=== PATIENT | male | born 1950 | race Caucasian/White ===

== ENCOUNTER 2019-08-25 09:36 | Outpatient (CLI) | payer MEDICARE, SELFPAY ==
--- NOTE | 2019-08-25 09:47 | US_ITS ---
WS: [id number] RIGHT UPPER QUADRANT ULTRASOUND HISTORY: hepatomegaly COMPARISON: None available. Liver: 19.3 cm in length. Liver is moderately enlarged. Marked attenuation from hepatic steatosis. Gallbladder: Well distended gallbladder with numerous stones with shadowing. No pericholecystic fluid or gallbladder wall thickening. CBD: 0.4 cm Pancreas: Not well visualized. Right kidney: 9.8 cm in length. Normal echogenicity with no mass or hydronephrosis. Aorta and IVC: Unremarkable. No ascites. US/US liver [id number] IMPRESSION: 1. Moderate hepatomegaly with hepatic steatosis. 2. Cholelithiasis without acute cholecystitis.
== END 2019-08-25 09:37 | disposition home or self-care (01) ==
LOC: RAD 09:42
PROVIDERS: Family Provider Electrodiagnostic Medicine; Visit Provider Family Medicine
DX: R16.0 Hepatomegaly, not elsewhere classified (principal); K76.0 Fatty (change of) liver, not elsewhere classified; K80.20 Calculus of gallbladder without cholecystitis without obstruction
CPT/HCPCS: 76705

== ENCOUNTER 2019-11-05 12:52 | Outpatient (CLI) | payer MEDICARE, SELFPAY ==
--- NOTE | 2019-11-05 13:02 | CT_ITS ---
WS: [id number] EXAM: CT OF THE ABDOMEN AND PELVIS WITH CONTRAST DATE OF EXAMINATION: 11/05/2019, 1431 hours COMPARISON: None. HISTORY: 69 years old with history of alcoholic liver cirrhosis with hepatomegaly. Liver mass. TECHNIQUE: Transaxial computed tomography images obtained through the abdomen and pelvis utilizing oral contrast as well as 95 mL of Omnipaque 300 IV contrast with images acquired in the portal and delayed phase. Images viewed in multiple windows with reconstructions. DLP: 1193.[address] scans at [facility] use at least one of these dose optimization techniques: automat ed exposure control; mA and/or kV adjustment per patient size (includes targeted exams where dose is matched to clinical indication); or iterative reconstruction. FINDINGS: Lung bases are clear other than minimal atelectasis in the anterior lingula abutting the left pericar dial fat pad. Heart size is considered upper limits of normal to minimally enlarged The aorta is norm al in caliber and opacifies normally. The liver is grossly abnormal. There is diffuse involvement with small nodular densities. This does n ot have the classic appearance for uncomplicated cirrhosis. Differential includes both benign and mal ignant entities. A diffuse metastatic process not excluded and is suspicious for being present. Could represent peliosis. A large solid mass lesion is otherwise not seen. There is slight irregularity to the serosal surface suggesting some degree of cirrhosis. Gallbladder is normally distended. Multiple stones are seen. No pericholecystic inflammatory change. No biliary dilatation is seen. The portal vein is patent. Spleen is slightly enlarged with calcified granulomas changes. Pancreas is normal in appearance. Adrenal glands are normal in appearance. Both kidneys enhance only. Low-density lesions in both kidneys most likely cysts. Too small to charac terize. Nonobstructing calyceal calcifications right kidney. No obstructive uropathy. Slightly low-de nsity mass lesion inferior lateral left kidney about 13 mm in size Hounsfield units around 40. Consid ered a complicated cyst versus a low-density mass lesion. Renal sonogram recommended to confirm prima ry suspicion of a hemorrhagic cyst. Stomach is most part decompressed otherwise normal in appearance. Small bowel is normal in caliber. T he colon is normal in caliber. There are scattered diverticulosis changes demonstrated. No bowel obst ruction is seen. Normal appendix in the right paracolic gutter. There are findings of a small amount of ascites. There is a small amount of stranding in the mesenter y and nodularity within the peritoneal lining which may be related to venous congestion. However with the findings in the liver I am suspicious for possible peritoneal implants of metastatic disease. Fu rther evaluation is recommended. A small amount of ascites is also seen interposed between the liver and the diaphragm and the spleen and the diaphragm. No pathologically enlarged adenopathy is seen. No umbilical hernia is seen. Small right inguinal hernia containing fat. Prostate is minimally enlarged. Bladder is normally distended. Otherwise unremarkable Scattered degenerative changes are seen in the spine. No acute bony abnormality is seen. Findings of arthritis within both hips as well. CT/CT abdomen pelvis w con* [id number] IMPRESSION: Imaging findings of a grossly abnormal liver with too numerous to count microno dular densities. Suspicious for possible diffuse metastatic disease. Findings suggesting some degree of slight cirrhosis. Small amount of ascites. Suspicion for peritoneal studding of metastatic disease. Lesions within the kidneys most likely cysts. One lesion off the inferior left kidney possibly a complication of hemorrhagic cyst. Renal sonogram follow-up re commended. Other nonemergent findings as described in the body of the report.
[2019-11-05] MEDS: iohexol 300 mg/mL 50 mL Btl PO (13:59)
[2019-11-05] MEDS: iohexol 300 mg/mL 100 mL Btl IV (14:32)
== END 2019-11-05 12:53 | disposition home or self-care (01) ==
LOC: RADWPI 12:52
PROVIDERS: PCP Electrodiagnostic Medicine; Visit Provider Electrodiagnostic Medicine
DX: K76.89 Other specified diseases of liver (principal); K70.30 Alcoholic cirrhosis of liver without ascites; R16.0 Hepatomegaly, not elsewhere classified; R18.8 Other ascites
CPT/HCPCS: 74177; Q9967

== ENCOUNTER 2019-11-22 18:28 | Emergency (ER) | payer MEDICARE, SELFPAY ==
[2019-11-22 18:43] VITALS: BP 111/68; PULSE 68; RESP 16; TEMP 36.4; O2SAT 96; BMI 28.1
--- NOTE | 2019-11-22 18:57 | XRR_ITS ---
PROCEDURE INFORMATION: Exam: XR Chest, 1 View Exam date and time: 11/22/2019 6:58 PM Age: 69 years old Clinical indication: Other: Weakness; Additional info: Generalized weakness TECHNIQUE: Imaging protocol: XR of the chest Views: 1 view. COMPARISON: No relevant prior studies available. FINDINGS: Lungs: Calcified granuloma in the the the right upper lobe. No focal consolidation. No pulmonary edema. Pleural space: No pleural effusion. No pneumothorax. Heart/Mediastinum: The cardiac silhouette and mediastinal contours are unremarkable. Bones/joints: Well-defined sclerotic focus in the proximal right humeral metadiaphysis, suggesting a bone infarct or possibly an enchondroma. Degenerative changes in the spine and shoulders. XR/XR chest 1V portable [id number] IMPRESSION: 1. No acute cardiopulmonary process. 2. Incidental/nonacute findings are listed in the report.
[2019-11-22 19:10] VITALS: BP 107/69; PULSE 70; RESP 16; O2SAT 96
[2019-11-22 19:24] LABS: Basophils # 0.1 10^3/uL (0.0-0.1); Basophils % 0.7 %; Eosinophils # 0.1 10^3/uL (0.0-0.8); Eosinophils % 0.8 %; Hemoglobin 14.7 g/dL (11.7-16.6); Lymphocytes # 1.9 10^3/uL (0.8-4.8); Lymphocytes % 17.6 %; Mean Corpuscular HGB Conc 34.2 g/dL (30.0-36.0); Mean Corpuscular Hemoglobin 37.7 pg (28.0-34.0); Mean Corpuscular Volume 110.3 fL (80-94); Mean Platelet Volume 12.7 fL (7.4-10.4); Monocytes # 1.2 10^3/uL (0.2-0.9); Monocytes % 11.1 %; Neutrophils # 7.48 10^3/uL (1.8-7.7); Neutrophils % 69.5 %; Nucleated Red Blood Cells % 0 %; Platelet Count 174 10^3/cmm (130-400); Red Cell Distribution Width 13.9 % (12.1-15.1); White Blood Count 10.8 10^3/uL (4.0-10.0)
[2019-11-22 19:45] LABS: Ammonia 53 umol/L (16-60)
[2019-11-22 19:57] LABS: Alanine Aminotransferase 50 U/L (0-41); Alkaline Phosphatase 93 IU/L (40-130); Anion Gap 12.8 (5-19); Aspartate Amino Transferase 88 U/L (0-40); Blood Urea Nitrogen 11 mg/dL (8-23); Calcium 8.8 mg/dL (8.5-10.5); Carbon Dioxide 27 mmol/L (22-29); Chloride 95 mmol/L (98-107); Creatinine Clr Calc Pharmacy 70.3099; Glomerular Filtration Rate 73.9 mL/min (90-130); Glucose 113 mg/dL (65-115); Lipase 128 U/L (13-60); NT Pro B Type Natriuretic Pept 44 pg/mL (0-125); Osmolality Calculated 269 mOsm/kg (285-295); Potassium 3.8 mmol/L (3.5-5.1); Sodium 131 mmol/L (136-145); Total Bilirubin 3.4 mg/dL (0.15-1.2)
[2019-11-22 20:00] VITALS: PULSE 67; RESP 16; O2SAT 95
--- NOTE | 2019-11-22 20:24 | CTR_ITS ---
PROCEDURE INFORMATION: Exam: CT Abdomen And Pelvis With Contrast Exam date and time: 11/22/2019 8:40 PM Age: 69 years old Clinical indication: Abnormal findings; Abnormal lab test; Elevated liver enzymes; Patient HX: Weakness x 2 days S/P fall elev lfts and cirrhosis; Additional info: Elevated liver enzymes, history of cirrhosis TECHNIQUE: Imaging protocol: Computed tomography of the abdomen and pelvis with intravenous contrast. Radiation optimization: All CT scans at this facility use at least one of these dose optimization techniques: automated exposure control; mA and/or kV adjustment per patient size (includes targeted exams where dose is matched to clinical indication); or iterative reconstruction. Contrast material: OMNI 300; Contrast volume: 95 ml; Contrast route: INTRAVENOUS (IV); COMPARISON: CT abdomen pelvis w con* [id number] 11/05/2019 2:28 PM RADIATION DOSE METRICS: Total DLP (mGy-cm): 883.37 FINDINGS: Lungs: Visualized lungs are clear. Pleural space: No pleural effusion. Heart: Stable mild enlargement of the visualized portions of the heart. Liver: Multiple calcified granulomas in the liver. Stable nodular contour of the liver. Multiple areas of mild fatty infiltration in the liver with areas of fatty sparing, findings are stable. Gallbladder and bile ducts: Multiple stones in the gallbladder. Findings are stable. No biliary ductal dilatation. The gallbladder is contracted. This may be due to a postprandial state. No pericholecystic fluid. Pancreas: The pancreas is unremarkable. No pancreatic ductal dilatation. Spleen: Stable mild enlargement of the spleen measuring 13.8 cm in length. Multiple calcified granulomas in the spleen. Adrenals: The right and left adrenal glands are unremarkable. Kidneys and ureters: Subcentimeter hypodense foci in both right and left kidneys that are too small to characterize, however likely represent small cysts. The right and left ureters are unremarkable. Stomach and bowel: Ingested contents in the stomach. Numerous diverticula in the sigmoid colon. No evidence for diverticulitis. Fluid within the small bowel and colon without evidence of bowel wall thickening. Appendix: The appendix is visualized and is unremarkable. No findings to suggest acute appendicitis. Intraperitoneal space: Stable moderate volume ascites. No free intraperitoneal air. No loculated fluid collections to suggest an abscess. Vasculature: Mild atherosclerotic calcification in the visualized coronary arteries. Moderate atherosclerotic changes in the visualized arteries. No evidence for aortic aneurysm or aortic dissection. Hepatic veins are poorly opacified and not well-visualized. Portal veins, splenic vein, and SMV are patent. Small/moderate caliber varices in the abdomen and pelvis are stable Lymph nodes: No lymphadenopathy. Bladder: Diffuse, mild wall thickening of the bladder. Reproductive: Nonspecific parenchymal calcifications in the prostate gland. Bones/joints: Moderate degenerative changes at both the right and left hips. Multilevel degenerative changes of varying severity in the visualized spine. Mild spinal canal stenosis at L1-L2 through L5-S1. Multilevel foraminal stenosis of varying severity in the visualized spine. Soft tissues: Dependent edema in the posterior subcutaneous tissues. CT/CT abdomen pelvis w con* [id number] IMPRESSION: 1. Fluid within the small bowel and colon without evidence of bowel wall thickening. This may reflect viral gastroenteritis in the appropriate clinical situation. 2. Stable changes consistent with cirrhosis and portal hypertension with mild splenomegaly, moderate volume ascites, and variceal formation. 3. Multiple areas of mild fatty infiltration in the liver with areas of fatty sparing, findings are stable. 4. Cholelithiasis, unchanged. 5. Diffuse, mild wall thickening of the bladder. In the correct clinical setting, this may suggest cystitis. Recommend correlation with laboratory findings. Alternatively, this may be secondary to chronic outlet obstruction. 6. Sigmoid diverticulosis. No evidence for diverticulitis. 7. Incidental/nonacute findings are listed in the report. COMMENTS: Consistent with the [employer]'s Incidental Findings Committee white paper (J Am Mushtaq Radiol 2018): Any incidental renal lesion less than 1.0 cm or classified as too small to characterize, or any incidental cystic renal lesion characterized as simple-appearing, is likely benign. No follow-up imaging is recommended for these lesions per consensus recommendations based on imaging criteria. Radiation Dose CTDIVOL = (mGy): DLP = 883.37 (mGy-cm)
[2019-11-22 20:29] LABS: C Reactive Protein 20.5 mg/L (0.0-4.9)
--- NOTE | 2019-11-22 20:38 | W.ED.WEAKNES ---
HPI - Weakness General: Chief complaint: Weakness Stated complaint: weakness Time Seen by Provider: 11/22/19 18:35 Source: patient and family Mode of arrival: ambulatory Limitations: no limitations History of Present Illness: HPI Narrative: Patient is a 69-year-old male who presents to the emergency department with complaints of generalized weakness of 2-week duration. He denies any fever, nausea vomiting, however he had one episode of loose stools. Denies any cough or shortness of breath. Denies any sick contacts. Patient and his caregiver informed that he was recently diagnosed with what seems to be liver cirrhosis with elevated ammonia levels also. He has been scheduled for a liver biopsy. Patient has been given lactulose and he has been taking it every day but says he is yet to have loose stools except the one from today. Associated symptoms: Denies chills, dysuria, fever(s), headache(s), nausea or vomiting Review of Systems General: Reports: 10 or more systems reviewed and unremarkable except in HPI and below Const: Reports: fatigue; Denies: fever(s), chills or body aches Eyes: Denies: change in vision or blurry vision ENMT: Denies: throat pain, enlarged tonsils, odynophagia, hoarseness, mouth pain or swelling of lips/tongue Card: Denies: palpitations, irregular heart rhythm, edema or swelling of feet/ankles Resp: Denies: dyspnea, productive cough or non-productive cough GI: Denies: abdominal pain, nausea or vomiting : Denies: flank pain, dysuria, urinary frequency, urinary urgency or urinary hesitancy Musc: Denies: neck pain, back pain or extremity swelling Skin/Breast: Denies: rash, pruritus or erythema Neuro: Denies: headache(s), numbness in extremities or weakness in extremities Endo: Denies: polyuria, polydipsia or tired all the time [facility] ED PFSH: Medical History (Reviewed 11/22/19 @ 20:47 by Lizzette Abraham MD, [facility] [place], [place]) Alcoholic liver disease Hypertension Surgical History (Reviewed 11/22/19 @ 20:47 by Lizzette Abraham MD, [facility] [place] [place]) H/O circumcision H/O colonoscopy 5 yrs ago H/O esophagogastroduodenoscopy History of back surgery History of surgical removal of ganglion cyst Family History (Reviewed 11/22/19 @ 20:47 by Lizzette Abraham MD, [facility] [place] [place]) Other CAD (coronary artery disease) Cancer Denies family history of Diabetes Anesthesia complication Bleeding disorder Hypertension Social History (Reviewed 11/22/19 @ 20:47 by Lizzette Abraham MD, [facility] [place] [place]) Smoking and tobacco status: never smoked Alcohol intake: current Alcohol intake frequency: 0-2 Drinks per Day Household members: spouse Marital status: Current occupational status: retired History of recent travel: No Physical Exam Const: COMMON NORMALS: no acute distress, average body habitus, patient oriented x3, no limitations, healthy appearing, alert and well nourished HENMT: COMMON NORMALS: normocephalic, atraumatic and moist oral mucous membranes HEAD & SCALP: normocephalic and atraumatic Neck/C-Spine: COMMON NORMALS: no meningeal signs and no JVD Resp: COMMON NORMALS: normal respiratory effort, No retractions, No use of accessory muscles, clear to auscultation bilaterally and percussion normal AUSCULTATION: clear to auscultation bilaterally PERCUSSION: percussion normal Cardio: COMMON NORMALS: no JVD, regular rate, regular rhythm, S1 normal heart sound present, S2 normal heart sound present, No gallops present (Cardio), No clicks present (Cardio), No murmurs present (Cardio), No rub (Cardio) and Peripheral pulses 2+ throughout RATE: regular rate RHYTHM: regular rhythm HEART SOUNDS: S1 normal heart sound present and S2 normal heart sound present PERIPHERAL PULSES: Peripheral pulses 2+ throughout GI: COMMON NORMALS: Normal to inspection, nondistended, normoactive bowel sounds present, Soft to palpation, non-tender, No hepatosplenomegaly present, no masses and no bruits PALPATION: Yes Soft to palpation and Yes No hepatosplenomegaly present Extremity: COMMON NORMALS: normal to inspection, full ROM, capillary refill normal, no calf tenderness and no pedal edema Neuro: COMMON NORMALS: patient oriented x3 SENSORIUM/ORIENTATION: Yes alert MENINGEAL SIGNS: Yes no meningeal signs Skin: COMMON NORMALS: no rashes or lesions noted, no wounds, turgor normal, no jaundice, no petechiae and no mottling GENERAL SKIN EXAM: no rashes or lesions noted and turgor normal Course Reevaluation(s): Reevaluation #1: Discussed his lab and imaging findings with him. Nothing acute is showing up. CT scan appears unchanged from his last CT. He has alcoholic liver disease and liver function tests abnormal consistent with his disease. Ammonia is back to normal. I think his symptoms are just due to the alcoholic liver disease and his probably on his way to being terminal. Explained that he needs to follow-up with his primary care and with his liver biopsy date scheduled. Based on results of his biopsy they can decide on further treatment vis-?-vis his hospice versus aggressive care. Patient and voiced understanding and they are in agreement with the plan. Time: 21:46 Vital Signs: Vital signs: Vital Signs Temperature 97.5 F L 11/22/19 18:43 Pulse Rate 68 11/22/19 21:24 Respiratory Rate 20 H 11/22/19 21:24 Blood Pressure 113/63 11/22/19 21:24 Pulse Oximetry 95 11/22/19 21:24 MDM - Weakness MDM Narrative: Medical decision making narrative: Unfortunate gentleman with alcoholic cirrhosis who has been feeling weak for about 2 weeks. He apparently had elevated ammonia levels when his primary care provider checked his levels. He is on lactulose and his ammonia levels today are normal. I think this is probably a progression of the cirrhosis as evaluation here did not reveal any acute findings. He is discharged home with no new orders. He already has an appointment for a liver biopsy. He is to follow-up with his primary care provider. Medical Records: Attestation: I reviewed the patient's medical records. Lab Data: Attestation: I reviewed the patient's lab results. Labs: Lab Results 11/22/19 11/22/19 11/22/19 Range/Units 19:10 19:10 19:10 WBC 10.8 H (4.0-10.0) 10^3/ uL RBC 3.90 L (4.1-5.3) 10^6/u L Hgb 14.7 (11.7-16.6) g/dL Hct 43.0 (42.0-52.0) % MCV 110.3 H (80-94) fL MCH 37.7 H (28.0-34.0) pg MCHC 34.2 (30.0-36.0) g/dL RDW 13.9 (12.1-15.1) % Plt Count 174 (130-400) 10^3/c mm MPV 12.7 H (7.4-10.4) fL Neut % (Auto) 69.5 % Lymph % (Auto) 17.6 % [place] % (Auto) 11.1 % Eos % (Auto) 0.8 % Baso % (Auto) 0.7 % Neut # (Auto) 7.48 (1.8-7.7) 10^3/u L Lymph # (Auto) 1.9 (0.8-4.8) 10^3/u L [place] # (Auto) 1.2 H (0.2-0.9) 10^3/u L Eos # (Auto) 0.1 (0.0-0.8) 10^3/u L Baso # (Auto) 0.1 (0.0-0.1) 10^3/u L Nucleated RBC % (a uto) 0 % Nucleated RBCs # 0.0 /100WBC Sodium 131 L (136-145) mmol/L Potassium 3.8 (3.5-5.1) mmol/L Chloride 95 L (98-107) mmol/L Carbon Dioxide 27 (22-29) mmol/L Anion Gap 12.8 (5-19) BUN 11 (8-23) mg/dL Creatinine 1.0 (0.7-1.2) mg/dL GFR Calculation 73.9 L (90-130) mL/min Glucose 113 (65-115) mg/dL Calculated Osmolal ity 269 L (285-295) mOsm/k g Lactate 2.0 (0.5-2.2) mmol/L Calcium 8.8 (8.5-10.5) mg/dL Total Bilirubin 3.4 H (0.15-1.2) mg/dL AST 88 H (0-40) U/L ALT 50 H (0-41) U/L Alkaline Phosphata se 93 (40-130) IU/L Ammonia (16-60) umol/L C-Reactive Protein 20.5 H (0.0-4.9) mg/L NT-Pro-B Natriuret Pep 44 (0-125) pg/mL Total Protein 7.0 (6.6-8.7) g/dL Albumin 3.0 L (3.5-5.2) g/dL Globulin 4.0 (1.3-4.6) g/dL Lipase 128 H (13-60) U/L Procalcitonin 0.20 (0-0.5) ng/mL Urine Color (Yellow) Urine Appearance (CLEAR) Urine pH (5-7) Ur Specific Gravit y (1.005-1.030) Urine Protein (Negative) Urine Glucose (UA) (Normal) Urine Ketones (Negative) Urine Blood (Negative) Urine Nitrate (Negative) Urine Bilirubin (NEGATIVE) Urine Urobilinogen (Negative) mg/dL Ur Leukocyte Tonya ase (Negative) 11/22/19 11/22/19 Range/Units 19:10 20:33 WBC (4.0-10.0) 10^3/ uL RBC (4.1-5.3) 10^6/u L Hgb (11.7-16.6) g/dL Hct (42.0-52.0) % MCV (80-94) fL MCH (28.0-34.0) pg MCHC (30.0-36.0) g/dL RDW (12.1-15.1) % Plt Count (130-400) 10^3/c mm MPV (7.4-10.4) fL Neut % (Auto) % Lymph % (Auto) % [place] % (Auto) % Eos % (Auto) % Baso % (Auto) % Neut # (Auto) (1.8-7.7) 10^3/u L Lymph # (Auto) (0.8-4.8) 10^3/u L [place] # (Auto) (0.2-0.9) 10^3/u L Eos # (Auto) (0.0-0.8) 10^3/u L Baso # (Auto) (0.0-0.1) 10^3/u L Nucleated RBC % (a uto) % Nucleated RBCs # /100WBC Sodium (136-145) mmol/L Potassium (3.5-5.1) mmol/L Chloride (98-107) mmol/L Carbon Dioxide (22-29) mmol/L Anion Gap (5-19) BUN (8-23) mg/dL Creatinine (0.7-1.2) mg/dL GFR Calculation (90-130) mL/min Glucose (65-115) mg/dL Calculated Osmolal ity (285-295) mOsm/k g Lactate (0.5-2.2) mmol/L Calcium (8.5-10.5) mg/dL Total Bilirubin (0.15-1.2) mg/dL AST (0-40) U/L ALT (0-41) U/L Alkaline Phosphata se (40-130) IU/L Ammonia 53 (16-60) umol/L C-Reactive Protein (0.0-4.9) mg/L NT-Pro-B Natriuret Pep (0-125) pg/mL Total Protein (6.6-8.7) g/dL Albumin (3.5-5.2) g/dL Globulin (1.3-4.6) g/dL Lipase (13-60) U/L Procalcitonin (0-0.5) ng/mL Urine Color Yellow (Yellow) Urine Appearance Clear (CLEAR) Urine pH 7 (5-7) Ur Specific Gravit y 1.010 (1.005-1.030) Urine Protein Neg (Negative) Urine Glucose (UA) Norm (Normal) Urine Ketones Negative (Negative) Urine Blood Neg (Negative) Urine Nitrate Negative (Negative) Urine Bilirubin Neg (NEGATIVE) Urine Urobilinogen 4 H (Negative) mg/dL Ur Leukocyte Tonya ase Negative (Negative) Imaging Data^: CT Abd/Pel: Radiologist's impression: [place] [address] CT Scan Report Signed Patient: Ej Dang #: [id number] : 1950Acct#:[id number] Age/Sex: 69 / MADM Date: 11/22/19 Loc: ERRoom/Bed: Attending Dr: Ordering Provider/Ordering MD: Lizzette Abraham MD, [facility] [place], [place] Date of Service: 11/22/19 Procedure(s): CT abdomen pelvis w con* [id number] Accession Number(s): [id number] Report Number: [id number] PROCEDURE INFORMATION: Exam: CT Abdomen And Pelvis With Contrast Exam date and time: 11/22/2019 8:40 PM Age: 69 years old Clinical indication: Abnormal findings; Abnormal lab test; Elevated liver enzymes; Patient HX: Weakness x 2 days S/P fall elev lfts and cirrhosis; Additional info: Elevated liver enzymes, history of cirrhosis TECHNIQUE: Imaging protocol: Computed tomography of the abdomen and pelvis with intravenous contrast. Radiation optimization: All CT scans at this facility use at least one of these dose optimization techniques: automated exposure control; mA and/or kV adjustment per patient size (includes targeted exams where dose is matched to clinical indication); or iterative reconstruction. Contrast material: OMNI 300; Contrast volume: 95 ml; Contrast route: INTRAVENOUS (IV); COMPARISON: CT abdomen pelvis w con* [id number] 11/05/2019 2:28 PM RADIATION DOSE METRICS: Total DLP (mGy-cm): 883.37 FINDINGS: Lungs: Visualized lungs are clear. Pleural space: No pleural effusion. Heart: Stable mild enlargement of the visualized portions of the heart. Liver: Multiple calcified granulomas in the liver. Stable nodular contour of the liver. Multiple areas of mild fatty infiltration in the liver with areas of fatty sparing, findings are stable. Gallbladder and bile ducts: Multiple stones in the gallbladder. Findings are stable. No biliary ductal dilatation. The gallbladder is contracted. This may be due to a postprandial state. No pericholecystic fluid. Pancreas: The pancreas is unremarkable. No pancreatic ductal dilatation. Spleen: Stable mild enlargement of the spleen measuring 13.8 cm in length. Multiple calcified granulomas in the spleen. Adrenals: The right and left adrenal glands are unremarkable. Kidneys and ureters: Subcentimeter hypodense foci in both right and left kidneys that are too small to characterize, however likely represent small cysts. The right and left ureters are unremarkable. Stomach and bowel: Ingested contents in the stomach. Numerous diverticula in the sigmoid colon. No evidence for diverticulitis. Fluid within the small bowel and colon without evidence of bowel wall thickening. Appendix: The appendix is visualized and is unremarkable. No findings to suggest acute appendicitis. Intraperitoneal space: Stable moderate volume ascites. No free intraperitoneal air. No loculated fluid collections to suggest an abscess. Vasculature: Mild atherosclerotic calcification in the visualized coronary arteries. Moderate atherosclerotic changes in the visualized arteries. No evidence for aortic aneurysm or aortic dissection. Hepatic veins are poorly opacified and not well-visualized. Portal veins, splenic vein, and SMV are patent. Small/moderate caliber varices in the abdomen and pelvis are stable Lymph nodes: No lymphadenopathy. Bladder: Diffuse, mild wall thickening of the bladder. Reproductive: Nonspecific parenchymal calcifications in the prostate gland. Bones/joints: Moderate degenerative changes at both the right and left hips. Multilevel degenerative changes of varying severity in the visualized spine. Mild spinal canal stenosis at L1-L2 through L5-S1. Multilevel foraminal stenosis of varying severity in the visualized spine. Soft tissues: Dependent edema in the posterior subcutaneous tissues. CT/CT abdomen pelvis w con* [id number] IMPRESSION: 1. Fluid within the small bowel and colon without evidence of bowel wall thickening. This may reflect viral gastroenteritis in the appropriate clinical situation. 2. Stable changes consistent with cirrhosis and portal hypertension with mild splenomegaly, moderate volume ascites, and variceal formation. 3. Multiple areas of mild fatty infiltration in the liver with areas of fatty sparing, findings are stable. 4. Cholelithiasis, unchanged. 5. Diffuse, mild wall thickening of the bladder. In the correct clinical setting, this may suggest cystitis. Recommend correlation with laboratory findings. Alternatively, this may be secondary to chronic outlet obstruction. 6. Sigmoid diverticulosis. No evidence for diverticulitis. 7. Incidental/nonacute findings are listed in the report. COMMENTS: Consistent with the [employer]'s Incidental Findings Committee white paper (J Am Mushtaq Radiol 2018): Any incidental renal lesion less than 1.0 cm or classified as too small to characterize, or any incidental cystic renal lesion characterized as simple-appearing, is likely benign. No follow-up imaging is recommended for these lesions per consensus recommendations based on imaging criteria. Radiation Dose CTDIVOL = (mGy): DLP = 883.37 (mGy-cm) Dictated By:Marry Ahumada MD Signed By:Marry Ahumada MDSigned Date/Time:11/22/192122 DD/ 21 CXR: Radiologist's impression: [address] [address] XRay Report Signed Patient: jE Dang #: [id number] : 1950Acct#:[id number] Age/Sex: 69 / MADM Date: 11/22/19 Loc: ERRoom/Bed: Attending Dr: Ordering Provider/Ordering MD: Lizzette Abraham MD, [facility] [place], [place] Date of Service: 11/22/19 Procedure(s): XR chest 1V portable [id number] Accession Number(s): [id number] Report Number: [id number] PROCEDURE INFORMATION: Exam: XR Chest, 1 View Exam date and time: 11/22/2019 6:58 PM Age: 69 years old Clinical indication: Other: Weakness; Additional info: Generalized weakness TECHNIQUE: Imaging protocol: XR of the chest Views: 1 view. COMPARISON: No relevant prior studies available. FINDINGS: Lungs: Calcified granuloma in the the the right upper lobe. No focal consolidation. No pulmonary edema. Pleural space: No pleural effusion. No pneumothorax. Heart/Mediastinum: The cardiac silhouette and mediastinal contours are unremarkable. Bones/joints: Well-defined sclerotic focus in the proximal right humeral metadiaphysis, suggesting a bone infarct or possibly an enchondroma. Degenerative changes in the spine and shoulders. XR/XR chest 1V portable [id number] IMPRESSION: 1. No acute cardiopulmonary process. 2. Incidental/nonacute findings are listed in the report. Dictated By:Marry Ahumada MD Signed By:Marry Ahumada MDSigned Date/Time:11/22/191954 DD/ 53 Discharge Plan Discharge Patient Disposition: Home Clinical Impression: Alcoholic liver disease Cirrhosis of liver Qualifiers: Hepatic cirrhosis type: alcoholic cirrhosis Ascites presence: with ascites Qualified Code(s): K70.31 - Alcoholic cirrhosis of liver with ascites Condition: Stable Prescriptions: New (DME) wheel chair See Rx Instructions .ROUTE .MEDSUPPLY Qty: 1 RF: 0 Continued metoprolol tartrate 50 mg tablet 50 mg PO BID RF: 0 omega-3 fatty acids 1,000 mg capsule 1,000 mg PO DAILY RF: 0 milk thistle 150 mg capsule 150 mg PO DAILY RF: 0 magnesium 250 mg tablet 250 mg PO DAILY RF: 0 vitamin B complex [B Complex-Vitamin B12] Tablet 1 tab PO DAILY RF: 0 diazepam [Valium] 10 mg tablet 10 mg PO TID PRNRF: 0 Discharge Orders: Discharge Order (Routine); Ordered 11/22/19 Ordered By: Lizzette Abraham Referrals: Luan Cruz DO [Primary Care Provider] - 1-3 days Patient Instructions: Cirrhosis (ED) Activity Restrictions/Additional Instructions: Return for any new or worsening symptoms. Follow-up with your primary care provider within 3 days. Follow-up for your liver biopsy as scheduled. Discharge Date/Time: 11/22/19 22:06 Coding Level of Care Code ED Recooperer for Rickey Fwd Exam Comprehensive
[2019-11-22] MEDS: iohexol 300 mg/mL 100 mL Btl IV (20:55)
[2019-11-22 20:56] LABS: Add Urine Microscopic? NO
[2019-11-22 21:01] LABS: Bilirubin Urine Neg (NEGATIVE); Blood Urine Neg (Negative); Glucose Urine UA Norm (Normal); Ketones Urine Negative (Negative); Leukocyte Esterase Urine Negative (Negative); Nitrate Urine Negative (Negative); Protein Urine Neg (Negative); Urine Appearance Clear (CLEAR); Urine Color Yellow (Yellow); Urobilinogen Urine 4 mg/dL (Negative); pH Urine 7 (5-7)
[2019-11-22 21:24] VITALS: BP 113/63; PULSE 68; RESP 20; O2SAT 95
== END 2019-11-22 22:06 | disposition home or self-care (01) ==
PROVIDERS: Emergency Provider Family Medicine; PCP Electrodiagnostic Medicine
DX: K70.31 Alcoholic cirrhosis of liver with ascites (principal); I10 Essential (primary) hypertension
CPT/HCPCS: 12345; 71045; 74177; 80053; 81003; 82140; 83605; 83690; 83880; 84145; 85025; 86140; 99283; Q9967

== ENCOUNTER 2019-11-30 12:52 | Outpatient (CLI) | payer MEDICARE, SELFPAY ==
--- NOTE | 2019-11-30 12:56 | CT_ITS ---
WS: [id number] CT CHEST WITH INTRAVENOUS CONTRAST HISTORY: LIVER MASS/HEPATOMEGALY/ALCOHOLIC LIVER CIRRHOSIS TECHNIQUE: Contiguous 5 mm axial imaging performed on the thorax. Coronal and sagittal reformats are submitted. All CT scans at [facility] use at least one of these dose optimization techniq ues: automated exposure control; mA and/or kV adjustment per patient size (includes targeted exams wh ere dose is matched to clinical indication); or iterative reconstruction. CONTRAST: Omnipaque 300; 95 mL IV. DLP: 586.83 mGy.cm COMPARISON: 11/22/2019, 11/05/2019 Lungs and central airway: Very mild pulmonary hyperexpansion from emphysema. There are a few scattere d benign granulomata. No evidence for metastatic disease to the lungs. Pleura: Normal. No pleural effusion. Heart and pericardium: Mildly enlarged heart chambers. No pericardial effusion. Mediastinum and xavi: No mediastinum or hilar adenopathy. Vessels: Moderate coronary artery calcification. Mild atherosclerosis aorta. Pulmonary artery size is equal to the aorta. Chest wall and lower neck: No soft tissue masses. Upper abdomen: Surface of the liver is irregular and there is diffuse low-attenuation and heterogenei ty within the liver. No discrete mass. Cholelithiasis. Visualized spleen contains numerous granulomat a. There is a moderate amount of free fluid surrounding the liver and spleen and mesenteric edema. Osseous structures: Degenerative changes at the sternoclavicular joints. RIGHT marginal osteophytes t hroughout the thoracic spine. CT/CT chest w con* [id number] IMPRESSION: 1. No metastatic lesions to the lungs. 2. Mild atherosclerosis aorta and moderate coronary artery atherosclerosis. 3. Mild cardiomegaly. 4. Ascites and cholelithiasis.
--- NOTE | 2019-11-30 12:56 | CT_ITS ---
WS: [id number] CT HEAD WITH AND WITHOUT CONTRAST HISTORY: HEPATIC ENCEPHALOPATHY TECHNIQUE: Noncontrast 2.5 mm axial images obtained from the vertex to the skull base. Additional sonny ging performed at 2.5 mm axial images status post IV contrast. Bone and soft tissue windows are revie wed. All CT scans at [facility] use at least one of these dose optimization techniques: a utomated exposure control; mA and/or kV adjustment per patient size (includes targeted exams where do se is matched to clinical indication); or iterative reconstruction. CONTRAST: Omnipaque 300; 95 mL IV. DLP: 599.11 mGy.cm COMPARISON: None available. No acute intracranial hemorrhage, edema or midline shift. Mild atrophy and mild chronic microvascular ischemic disease. 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 No enhancing mass or vascular malformations identified. Dural venous sinuses are normally enhancing. Visualized [place] is unremarkable. Paranasal sinuses as visualized: Clear. Mastoid air cells: Clear. Calvarium and scalp: Intact. CT/CT head wo/w con [id number] IMPRESSION: 1. No acute intracranial hemorrhage or edema. 2. Mild cerebral atrophy and chronic microvascular ischemic disease. 3. No enhancing masses.
--- NOTE | 2019-11-30 13:03 | US_ITS ---
WS: [id number] RENAL ULTRASOUND HISTORY: KIDNEY MASS COMPARISON: 08/25/2019 TECHNIQUE: 2-D and color Doppler imaging of the kidney submitted. Right kidney: 10.3 cm x 5.7 cm x 7.1 cm. Normal echogenicity with no hydronephrosis or mass. Left kidney: 11.6 cm x 4.8 cm x 5.2 cm. Normal echogenicity with no hydronephrosis or mass. Exophytic cyst from the lower pole measures 1.2 x 0.9 x 1.3 cm. No solid mass. Aorta: Normal. Urinary Bladder: Normally distended bladder. No intraluminal mass. Moderate amount of ascites throughout all 4 quadrants. Surface of the liver is irregular and findings suggestive of cirrhosis. US/US renal BI* [id number] IMPRESSION: 1. No solid renal mass or obstruction. 2. 1.2 cm cortical cyst lower pole LEFT kidney. 3. Moderate amount of ascites. 4. Cirrhosis.
[2019-11-30] MEDS: iohexol 300 mg/mL 100 mL Btl IV ×2 (14:29→14:33)
== END 2019-11-30 12:53 | disposition home or self-care (01) ==
LOC: CT 12:53
PROVIDERS: PCP Electrodiagnostic Medicine; Visit Provider Electrodiagnostic Medicine
DX: D37.6 Neoplasm of uncertain behavior of liver, gallbladder and bile ducts (principal); K70.30 Alcoholic cirrhosis of liver without ascites; R16.0 Hepatomegaly, not elsewhere classified; K76.89 Other specified diseases of liver; N28.89 Other specified disorders of kidney and ureter; Q61.01 Congenital single renal cyst; R18.8 Other ascites; K72.90 Hepatic failure, unspecified without coma; G31.9 Degenerative disease of nervous system, unspecified; I67.82 Cerebral ischemia; I51.7 Cardiomegaly; I70.0 Atherosclerosis of aorta; I25.10 Atherosclerotic heart disease of native coronary artery without angina pectoris; K80.20 Calculus of gallbladder without cholecystitis without obstruction
CPT/HCPCS: 70470; 71260; 76770

== ENCOUNTER 2019-12-01 07:06 | Outpatient (CLI) | payer MEDICARE, SELFPAY ==
[2019-11-30 16:20] VITALS: BMI 28.1
[2019-12-01] VITALS (18 sets, daily range): BP systolic 77–110; BP diastolic 44–62; PULSE 56–68; RESP 18–20; TEMP 36.1; O2SAT 96–100; BMI 28.1
--- NOTE | 2019-12-01 07:39 | US_ITS ---
WS: [id number] ULTRASOUND-GUIDED THERAPEUTIC AND DIAGNOSTIC PARACENTESIS Procedure, risks, and complications have been explained to the patient. Consent is obtained. Utilizing aseptic technique and 1% buffered lidocaine, a small dermatome was made through which a 5 F rench Yueh catheter was inserted. Approximately 1800 ml of clear yellow peritoneal fluid was obtained without difficulty. No complications encountered. Peritoneal fluid collected and sent for analysis as requested. IMPRESSION: Uncomplicated paracentesis yielding 1800 ml of peritoneal fluid. Peritoneal fluid collected and sent for analysis as requested.
--- NOTE | 2019-12-01 07:44 | US_ITS ---
WS: [id number] Limited liver ultrasound. HISTORY: Patient presents for biopsy of the liver mass. COMPARISON: Multiple prior examinations have been reviewed. During imaging of the liver no mass is identified for biopsy to be performed. Multiple prior studies were reviewed and no discrete mass seen on prior recent studies. Pattern of abnormal enhancement note d on 11/05/2019 is probably arterial phase injection of the liver with hepatic steatosis background. C Ts have been performed since then and ultrasounds which did not demonstrate any mass. Note: Patient became hypotensive but nonsymptomatic, after the paracentesis was performed. Anesthesia was consulted for blood pressure control. US/US abdomen limited [id number] IMPRESSION: 1. No hepatic mass identified by ultrasound for biopsy. 2. Nodular pattern seen on the prior study of 11/05/2019 probably due to the ear ly arterial phase injection of the liver on a background of cirrhosis and nodul arity. 3. Recommend three-phase hepatic CT follow-up in 6-8 weeks.
[2019-12-01] MEDS: sodium chloride 0.9% 1,000 ML 30 ML IV (08:05)
[2019-12-01 08:09] LABS: Platelet Count 184 10^3/cmm (130-400)
[2019-12-01 08:38] LABS: INR 1.34 (0.8-1.2)
[2019-12-01] MEDS: sodium chloride 0.9% 500 ML 999 ML IV (10:05)
--- NOTE | 2019-12-01 10:21 | SUR.OPER ---
1000 Pt blood pressure dropped significantly low during procedure. Dr. Dominguez, anesthesiologist, consulted due to low BP. Orders received for albumin 12.5 mg in 50 mL to be administered. May repeat x 1 for continued low BP. Dr. Dominguez at bedside evaluating patient and treating BP. Pt alert and oriented. Asymptomatic. No mass found following paracentesis. Ultrasound biopsy of liver cancelled at this time per Dr. Cadena.
[2019-12-01] MEDS: albumin 12.5 GM/50 ML VIAL IV ×2 (10:25→10:41)
[2019-12-01 10:59] LABS: Body Fluid Polynuclear #Cells 0.059; Body Fluid WBC 403 /uL; Monocytes # Body Fluid 0.344; RBC, Body Fluid 0 10^3/uL
[2019-12-01 11:40] LABS: Apprearance, Body Fluid CLEAR; Body Fluid Specific Gravity 1.015; Color, Body Fluid YELLOW
--- NOTE | 2019-12-01 11:46 | SUR.OPER ---
0950 Ultrasound guided paracentesis per Dr. Cadena completed. 1860 mL clear hortencia fluid removed from abdomen. Fluid sent to lab as ordered.
--- NOTE | 2019-12-01 11:48 | SUR.OPER ---
1030 Dr. Brown notified of cancellation of ultrasound guided biopsy of liver and updated on patient status.
[2019-12-01 11:59] LABS: PATH Referral YES
[2019-12-01 13:21] LABS: Albumin Body Fluid 0.9 g/dL; Fluid Alkaline Phos. 16 IU/L; LDH Body Fluid 54 U/L; Total Protein Body Fluid 2 g/dL
[2019-12-01 13:22] LABS: Cholesterol Body Fluid 33 mg/dL (0-200); Triglycerides Body Fluid 22 mg/dL (0-150); Uric Acid Body Fluid 5 mg/dL
[2019-12-01 13:43] LABS: Amylase Body Fluid 26 U/L
== END 2019-12-01 11:38 | disposition home or self-care (01) ==
PROVIDERS: Radiology Diagnostic Radiology; PCP Electrodiagnostic Medicine; Visit Provider Surgery
DX: R16.0 Hepatomegaly, not elsewhere classified (principal); I95.9 Hypotension, unspecified; K74.60 Unspecified cirrhosis of liver
CPT/HCPCS: 36430; 49083; 76705; 80500; 82040; 82042; 82150; 82465; 82945; 83615; 83986; 84075; 84157; 84315; 84478; 84560; 85049; 85610; 87015; 87070; 87075; 87116; 87205; 87206; 87801; 88112; 88305; 89050; 96365; J2370; J7030; J7040; P9047

== ENCOUNTER 2019-12-16 12:10 | Emergency (ER) | payer MEDICARE, SELFPAY ==
[2019-12-16 12:22] VITALS: BP 139/86; PULSE 64; RESP 20; TEMP 36.8; O2SAT 95; BMI 28.6
--- NOTE | 2019-12-16 12:38 | ECG_ITS ---
[facility] Test Date: 2019-12-16 Pat Name: Ej Dang Department: Room: Gender: Male [employer]: : 1950 Requested By: Josie Gore Order Number: [id number] Richard MD: Ceasar Hernandez M.D. Measurements Intervals [place] Rate: 61 P: 2 NH: 148 QRS: -3 QRSD: 82 T: -11 QT: 409 QTc: 415 Interpretive Statements SINUS RHYTHM WITH OCCASIONAL SUPRAVENTRICULAR PREMATURE COMPLEXES No previous ECG available for comparison Electronically Signed On 12-16-2019 18:36:25 CDT by Ceasar Hernandez M.D. [id number]
--- NOTE | 2019-12-16 12:38 | XRR_ITS ---
PROCEDURE INFORMATION: Exam: XR Chest, 1 View Exam date and time: 12/16/2019 1:05 PM Age: 69 years old Clinical indication: Other: Abdomen pain per patient; Additional info: Cp TECHNIQUE: Imaging protocol: XR of the chest Views: 1 view. COMPARISON: CT chest w con* [id number] 11/30/2019 2:22 PM FINDINGS: Lungs: Unremarkable. No consolidation. Pleural space: Unremarkable. No pleural effusion. No pneumothorax. Heart/Mediastinum: Unremarkable. No cardiomegaly. 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
[2019-12-16 12:44] LABS: Basophils # 0.1 10^3/uL (0.0-0.1); Basophils % 0.7 %; Eosinophils # 0.2 10^3/uL (0.0-0.8); Hematocrit 43.1 % (42.0-52.0); Hemoglobin 14.6 g/dL (11.7-16.6); Lymphocytes % 21.4 %; Mean Corpuscular HGB Conc 33.9 g/dL (30.0-36.0); Mean Corpuscular Hemoglobin 37.2 pg (28.0-34.0); Mean Corpuscular Volume 109.9 fL (80-94); Mean Platelet Volume 12.7 fL (7.4-10.4); Monocytes # 1.1 10^3/uL (0.2-0.9); Monocytes % 11.8 %; Neutrophils # 5.82 10^3/uL (1.8-7.7); Neutrophils % 63.9 %; Nucleated Red Blood Cells % 0 %; Platelet Count 136 10^3/cmm (130-400); Red Blood Count 3.92 10^6/uL (4.1-5.3); Red Cell Distribution Width 13.2 % (12.1-15.1); White Blood Count 9.1 10^3/uL (4.0-10.0)
--- NOTE | 2019-12-16 12:49 | W.ED.SOB ---
HPI - SOB/Dyspnea General: Chief Complaint: Shortness of Breath/Dyspnea Stated Complaint: swelling in feet/stomach issues Time Seen by Provider: 12/16/19 12:39 Source: patient Mode of arrival: ambulatory Limitations: no limitations History of Present Illness: HPI Narrative: 69-year-old male has a history of cirrhosis from being an alcoholic. He states he no longer drinks at this time. He states that he gets ascites and paracenteses and had a paracentesis 2 weeks ago. He states that he is developed fluid again and his doctors not set him up with a new paracentesis date. He states he is having some slight shortness of breath and abdominal pain from the distention. Denies any fever. He has had swelling in his legs as well. Denies any worsening improving factors. Associated symptoms: Reports abdominal pain; Deny chest pain or fever(s) Review of Systems Const: Denies: fever(s), chills, body aches or change in appetite Eyes: Denies: blurry vision or eye discomfort ENMT: Denies: throat pain or dental pain Card: Denies: chest pain Resp: Reports: dyspnea GI: Reports: abdominal pain : Denies: dysuria Musc: Denies: neck pain or back pain Skin/Breast: Denies: rash Neuro: Denies: headache(s) Psych: Denies: depression Mark/Lymph: Denies: easy bruising All/Imm: Denies: urticaria PFSH ED PFSH: Medical History (Updated 12/16/19 @ 13:38 by Josie Gore MD) Alcoholic liver disease Hypertension Surgical History (Reviewed 11/22/19 @ 20:47 by Lizzette Abraham MD, [facility] [place]) H/O circumcision H/O colonoscopy 5 yrs ago H/O esophagogastroduodenoscopy History of back surgery History of surgical removal of ganglion cyst Family History (Reviewed 11/22/19 @ 20:47 by Lizzette Abraham MD, [facility] [place]) Other CAD (coronary artery disease) Cancer Denies family history of Diabetes Anesthesia complication Bleeding disorder Hypertension Social History (Reviewed 11/22/19 @ 20:47 by Lizzette Abraham MD, [facility] [place]) Smoking and tobacco status: never smoked Alcohol intake: current Alcohol intake frequency: 0-2 Drinks per Day Household members: spouse Marital status: Current occupational status: retired History of recent travel: No Physical Exam Const: COMMON NORMALS: no acute distress, patient oriented x3 and healthy appearing HENMT: COMMON NORMALS: normocephalic and atraumatic HEAD & SCALP: normocephalic and atraumatic Eye: COMMON NORMALS: Equal, round and reactive pupils present and EOMs intact bilaterally PUPIL: Yes Equal, round and reactive pupils present Neck/C-Spine: COMMON NORMALS: full ROM and supple Chest: COMMONS NORMALS: normal inspection of the chest and normal palpation of entire chest wall Resp: COMMON NORMALS: normal respiratory effort, No retractions, No use of accessory muscles and clear to auscultation bilaterally AUSCULTATION: clear to auscultation bilaterally Cardio: COMMON NORMALS: regular rate, regular rhythm and No murmurs present (Cardio) RATE: regular rate RHYTHM: regular rhythm GI: COMMON NORMALS: Soft to palpation, non-tender and no masses PALPATION: Yes Soft to palpation OTHER: Abdomen is distended with ascites Extremity: COMMON NORMALS: normal to inspection and full ROM Neuro: COMMON NORMALS: patient oriented x3, moves all extremities and no focal motor deficits Psych: COMMON NORMALS: mental status grossly normal, Normal thought process present and cooperative THOUGHT PROCESS: Normal thought process present Skin: COMMON NORMALS: no rashes or lesions noted and no wounds GENERAL SKIN EXAM: no rashes or lesions noted Course Vital Signs: Vital signs: Vital Signs Temperature 98.3 F 12/16/19 12:22 Pulse Rate 64 12/16/19 12:22 Respiratory Rate 20 H 12/16/19 12:22 Blood Pressure 139/86 12/16/19 12:22 Pulse Oximetry 95 12/16/19 12:22 MDM - SOB/Dyspnea MDM Narrative: Medical decision making narrative: Patient presents here with ascites likely causing some mild dyspnea. Patient is well-appearing here with no signs of spontaneous bacterial peritonitis or pneumonia. Patient has no signs of pulmonary embolism. Patient given Lasix here and we will set him up an outpatient paracentesis. He is to follow-up with his PCP in 3 to 5 days and return if worsening. Lab Data: Labs: Lab Results 12/16/19 12/16/19 Range/Units 12:30 12:30 WBC 9.1 (4.0-10.0) 10^3/ uL RBC 3.92 L (4.1-5.3) 10^6/u L Hgb 14.6 (11.7-16.6) g/dL Hct 43.1 (42.0-52.0) % MCV 109.9 H (80-94) fL MCH 37.2 H (28.0-34.0) pg MCHC 33.9 (30.0-36.0) g/dL RDW 13.2 (12.1-15.1) % Plt Count 136 (130-400) 10^3/c mm MPV 12.7 H (7.4-10.4) fL Neut % (Auto) 63.9 % Lymph % (Auto) 21.4 % [place] % (Auto) 11.8 % Eos % (Auto) 2.0 % Baso % (Auto) 0.7 % Neut # (Auto) 5.82 (1.8-7.7) 10^3/u L Lymph # (Auto) 2.0 (0.8-4.8) 10^3/u L [place] # (Auto) 1.1 H (0.2-0.9) 10^3/u L Eos # (Auto) 0.2 (0.0-0.8) 10^3/u L Baso # (Auto) 0.1 (0.0-0.1) 10^3/u L Nucleated RBC % (a uto) 0 % Nucleated RBCs # 0.0 /100WBC Sodium 134 L (136-145) mmol/L Potassium 4.6 (3.5-5.1) mmol/L Chloride 106 (98-107) mmol/L Carbon Dioxide 21 L (22-29) mmol/L Anion Gap 11.6 (5-19) BUN 10 (8-23) mg/dL Creatinine 0.8 (0.7-1.2) mg/dL GFR Calculation 95.6 (90-130) mL/min Glucose 149 H (65-115) mg/dL Calculated Osmolal ity 280 L (285-295) mOsm/k g Calcium 8.8 (8.5-10.5) mg/dL Total Bilirubin 2.8 H (0.15-1.2) mg/dL AST 51 H (0-40) U/L ALT 31 (0-41) U/L Alkaline Phosphata se 76 (40-130) IU/L NT-Pro-B Natriuret Pep 119 (0-125) pg/mL Total Protein 6.5 L (6.6-8.7) g/dL Albumin 3.0 L (3.5-5.2) g/dL Globulin 3.5 (1.3-4.6) g/dL Lipase 89 H (13-60) U/L Imaging Data^: CXR: Attestation: I personally reviewed and interpreted this imaging study as follows: My impression: no acute abnormality EKG Data^: EKG 1: Attestation: I personally reviewed and interpreted this EKG as follows: EKG Interpretation Date: 12/16/19 EKG interpretation time: 12:28 Interpretation: nsr hr [address] or t wave abnormalities qrs 82 qtc 413 Discharge Plan Discharge Patient Disposition: Home Clinical Impression: Alcoholic liver disease Ascites Qualifiers: Ascites type: other type Qualified Code(s): R18.8 - Other ascites Condition: Stable Prescriptions: No Action metoprolol tartrate 50 mg tablet 50 mg PO BID RF: 0 omega-3 fatty acids 1,000 mg capsule 1,000 mg PO DAILY RF: 0 milk thistle 150 mg capsule 150 mg PO DAILY RF: 0 magnesium 250 mg tablet 250 mg PO DAILY RF: 0 vitamin B complex [B Complex-Vitamin B12] Tablet 1 tab PO DAILY RF: 0 diazepam [Valium] 10 mg tablet 10 mg PO TID PRN (Reason: Anxiety) RF: 0 (DME) wheel chair See Rx Instructions .ROUTE .MEDSUPPLY Qty: 1 RF: 0 Discharge Orders: Discharge Order (Routine); Ordered 12/16/19 Ordered By: Josie Gore Referrals: Luan Crzu DO [Primary Care Provider] - 1-3 days Discharge Diet: Advance as tolerated Discharge Activity: Resume usual activity Patient Instructions: Ascites (ED) Coding Level of Care Code ED Blockmason for Chg Fwd Exam Comprehensive
--- NOTE | 2019-12-16 12:53 | DCPLANNER ---
client portfolio manager was asked to schedule an outpatient pracentesis for patient. client portfolio manager faxed order to centralized scheduling, will call for appointment information.
[2019-12-16 13:20] LABS: Alanine Aminotransferase 31 U/L (0-41); Alkaline Phosphatase 76 IU/L (40-130); Anion Gap 11.6 (5-19); Aspartate Amino Transferase 51 U/L (0-40); Blood Urea Nitrogen 10 mg/dL (8-23); Calcium 8.8 mg/dL (8.5-10.5); Carbon Dioxide 21 mmol/L (22-29); Chloride 106 mmol/L (98-107); Globulin 3.5 g/dL (1.3-4.6); Glomerular Filtration Rate 95.6 mL/min (90-130); Glucose 149 mg/dL (65-115); Lipase 89 U/L (13-60); NT Pro B Type Natriuretic Pept 119 pg/mL (0-125); Osmolality Calculated 280 mOsm/kg (285-295); Potassium 4.6 mmol/L (3.5-5.1); Sodium 134 mmol/L (136-145); Total Bilirubin 2.8 mg/dL (0.15-1.2); Total Protein 6.5 g/dL (6.6-8.7)
[2019-12-16 13:47] VITALS: BP 128/71; PULSE 72; RESP 18; O2SAT 100
[2019-12-16] MEDS: FUROsemide 10 mg/mL SDV 4mL 40 MG IVP (13:47)
--- NOTE | 2019-12-18 13:56 | DCPLANNER ---
Patient has a follow up appointment for an outpatient paracentethis scheduled for Saturday, December 18, 2019 at 3:00.
--- NOTE | 2019-12-22 15:53 | DCPLANNER ---
Patient had a paraconththis scheduled for 12.18.19 - patient did attend appointment.
== END 2019-12-16 14:23 | disposition home or self-care (01) ==
PROVIDERS: Emergency Provider Emergency Medicine; PCP Electrodiagnostic Medicine
DX: R18.8 Other ascites (principal); K70.9 Alcoholic liver disease, unspecified; I10 Essential (primary) hypertension
CPT/HCPCS: 12345; 36415; 71045; 80053; 83690; 83880; 85025; 93005; 96374; 96375; 99282; 99283; J1940

== ENCOUNTER 2019-12-18 14:11 | Outpatient (CLI) | payer MEDICARE, SELFPAY ==
--- NOTE | 2019-12-18 14:28 | US_ITS ---
WS: [id number] ULTRASOUND-GUIDED PARACENTESIS CLINICAL INFORMATION: ASCITES COMPARISON: None. Procedure Informed consent: The risks, benefits, and alternatives of the procedure were discussed with the samantha ent. Verbal and written consent was obtained. Timeout: A timeout was performed to confirm the correct patient, procedure, and site. Preparation: A suitable skin site was identified. The patient was prepped and draped in usual sterile fashion. Lidocaine 1% was used for local anesthesia. Catheter: 4 Spanish One-step Yueh catheter. Side: Right Lower quadrant. Fluid Volume: 4800 ml Color: Clear yellow DISPOSITION: Discarded safely. Complications: None. Patient disposition: Discharged from the department in stable condition. US/US paracentesis abd w [id number] IMPRESSION: Uncomplicated ultrasound-guided paracentesis. Removal of 4800 cc
[2019-12-18 15:23] LABS: Ammonia 57 umol/L (16-60)
== END 2019-12-18 14:12 | disposition home or self-care (01) ==
LOC: RAD 14:14
PROVIDERS: PCP Electrodiagnostic Medicine; Visit Provider Electrodiagnostic Medicine
DX: R18.8 Other ascites (principal)
CPT/HCPCS: 36415; 49083; 82140

== ENCOUNTER 2019-12-30 11:30 | Outpatient (CLI) | payer MEDICARE, SELFPAY ==
--- NOTE | 2019-12-30 12:03 | US_ITS ---
WS: [id number] ULTRASOUND-GUIDED THERAPEUTIC PARACENTESIS Procedure, risks, and complications have been explained to the patient. Consent is obtained. Utilizing aseptic technique and 1% buffered lidocaine, a small dermatome was made through which a 5 F rench Yueh catheter was inserted. Approximately 3600 ml of hortencia peritoneal fluid was obtained withou t difficulty. No complications encountered. US/US paracentesis abd w [id number] IMPRESSION: Uncomplicated paracentesis yielding 5600 ml of peritoneal fluid.
== END 2019-12-30 11:31 | disposition home or self-care (01) ==
LOC: RAD 11:36
PROVIDERS: PCP Electrodiagnostic Medicine; Visit Provider Electrodiagnostic Medicine
DX: R18.8 Other ascites (principal); K70.30 Alcoholic cirrhosis of liver without ascites
CPT/HCPCS: 49083

== ENCOUNTER 2020-01-28 10:33 | Outpatient (CLI) | payer MEDICARE, SELFPAY ==
--- NOTE | 2020-01-28 14:00 | US_ITS ---
WS: [id number] ULTRASOUND-GUIDED PARACENTESIS CLINICAL INFORMATION: ASCITES DUE TO ALCOHOLIC CIRRHOSIS COMPARISON: None. Procedure Informed consent: The risks, benefits, and alternatives of the procedure were discussed with the samantha ent. Verbal and written consent was obtained. Timeout: A timeout was performed to confirm the correct patient, procedure, and site. Preparation: A suitable skin site was identified. The patient was prepped and draped in usual sterile fashion. Lidocaine 1% was used for local anesthesia. Catheter: 4 Montenegrin One-step Yueh catheter. Side: Left Lower quadrant. Fluid Volume: 9000 ml Color: Dulce 50 cc's sent for requested diagnostic tests. Remainder discarded safely. Complications: None. Patient disposition: Discharged from the department in stable condition. US/US paracentesis abd w [id number] IMPRESSION: Uncomplicated ultrasound-guided paracentesis. Removal of 9000 cc
[2020-01-28 14:08] VITALS: BP 113/81; PULSE 66; RESP 18; TEMP 36.3; O2SAT 98; BMI 30.7
[2020-01-28 16:06] LABS: Appearance, Peritoneal Fluid Clear (Clear); Color, Peritoneal Fluid Pale Yellow (Pale Yellow); Mononuclear #, Pertinoneal Fl 0.242 10^3/uL; Polynuclear # Cells, Perit 0.035 10^3/uL
[2020-01-28 16:07] LABS: Pathology Referral Yes; RBC Pertioneal Fluid 0 10^3/uL; WBC Peritoneal Fluid 277 /uL
== END 2020-01-28 10:34 | disposition home or self-care (01) ==
PROVIDERS: PCP Electrodiagnostic Medicine; Visit Provider Internal Medicine Gastroenterology
DX: K70.31 Alcoholic cirrhosis of liver with ascites (principal)
CPT/HCPCS: 49083; 80500; 87070; 87075; 87205; 89050; P9047

== ENCOUNTER → 2020-03-07 08:09 | Day surgery (SDC) | payer MEDICARE, SELFPAY ==
--- NOTE | 2020-03-07 | US_ITS ---
WS: [id number] ULTRASOUND-GUIDED THERAPEUTIC PARACENTESIS Procedure, risks, and complications have been explained to the patient. Consent is obtained. Utilizing aseptic technique and 1% buffered lidocaine, a small dermatome was made through which a 5 F rench Yueh catheter was inserted. Approximately 8000 ml of mild yellow peritoneal fluid was obtained without difficulty. No complications encountered. US/US paracentesis abd w [id number] IMPRESSION: Uncomplicated paracentesis yielding 8000 ml of peritoneal fluid.
[2020-03-07] MEDS: ALBUMIN IV (11:10)
[2020-03-07 11:27] VITALS: BP 111/74; PULSE 74; RESP 18; TEMP 36.6; O2SAT 98
--- NOTE | 2020-03-07 11:34 | PC.NURSE ---
Emi joseph started the procedure and performed a timeout. When it was determined that replacement fluid would be administered I was asked to start the IV and infuse the albumin.
[2020-03-07 12:02] VITALS: BP 111/74; PULSE 70; RESP 18; TEMP 36.6; O2SAT 98
[2020-03-07 12:24] LABS: Apprearance, Body Fluid CLEAR; Color, Body Fluid PALE YELLOW
[2020-03-07 12:25] LABS: Body Fluid WBC 260 /uL; RBC, Body Fluid 0 10^3/uL
== END | disposition home or self-care (01) ==
PROVIDERS: PCP Electrodiagnostic Medicine; Visit Provider Radiology Diagnostic Radiology
DX: K70.31 Alcoholic cirrhosis of liver with ascites (principal)
CPT/HCPCS: 49083; 80500; 87070; 87075; 87205; 89050; P9047

== ENCOUNTER 2020-04-20 08:24 | Outpatient (CLI) | payer MEDICARE, SELFPAY ==
[2020-04-20 08:02] VITALS: BMI 29.0
[2020-04-20 08:44] VITALS: BP 127/84; PULSE 77; RESP 18; TEMP 36.9; O2SAT 97
--- NOTE | 2020-04-20 08:48 | US_ITS ---
WS: [id number] ULTRASOUND-GUIDED THERAPEUTIC AND DIAGNOSTIC PARACENTESIS Procedure, risks, and complications have been explained to the patient. Consent is obtained. Utilizing aseptic technique and 1% buffered lidocaine, a small dermatome was made through which a 5 F rench Yueh catheter was inserted. Approximately 10,000 ml of clear peritoneal fluid was obtained wit hout difficulty. No complications encountered. Specimen collected for analysis as requested. Patient did receive IV albumin during this paracentesis. US/US paracentesis abd w [id number] IMPRESSION: Uncomplicated paracentesis yielding 10,000 ml of peritoneal fluid. Specimen collected for analysis as requested.
--- NOTE | 2020-04-20 10:37 | US_ITS ---
WS: [id number] RIGHT UPPER QUADRANT ULTRASOUND HISTORY: CIRRHOSIS COMPARISON: 6 12/01/2019 Liver: 11.4 cm in length. Small shrunken liver. Coarse echotexture from hepatocellular disease. No di screte mass identified. No bile duct dilatation. Gallbladder: Normally distended gallbladder with stones. CBD: 0.4 cm Pancreas: Normal size and echogenicity. Right kidney: 9.8 cm in length. Normal size kidney. Cortical cyst in the mid kidney. No solid mass or obstruction. Aorta and IVC: Unremarkable abdominal aorta and IVC. There is still a [id number] amount of ascites surrounding the liver. Just prior to this ultras ound evaluation of paracentesis was performed removing 10,000 ml of ascites. US/US abdomen limited [id number] IMPRESSION: 1. Cirrhotic appearing liver. 2. Cholelithiasis without acute cholecystitis. 3. No bile duct dilatation 4. Mild to moderate remaining ascites despite paracentesis being performed jus t prior to this study yielding 10,000 ml of fluid.
[2020-04-20 13:00] VITALS: BP 100/51; PULSE 77; RESP 18; O2SAT 100
[2020-04-20 13:27] LABS: Mononuclear #, Pertinoneal Fl 0.135 10^3/uL; Polynuclear # Cells, Perit 0.017 10^3/uL
[2020-04-20 13:38] LABS: Appearance, Peritoneal Fluid Clear (Clear); Color, Peritoneal Fluid Yellow (Pale Yellow); RBC Pertioneal Fluid 0 10^3/uL; WBC Peritoneal Fluid 152 /uL
[2020-04-20 13:39] LABS: Pathology Referral Yes
== END 2020-04-20 13:36 | disposition home or self-care (01) ==
LOC: CCL 08:31
PROVIDERS: Radiology Diagnostic Radiology; PCP Electrodiagnostic Medicine; Visit Provider Internal Medicine Gastroenterology
PROC: (CPT 49082; principal; 2020-04-20 09:00)
DX: K74.60 Unspecified cirrhosis of liver (principal); K80.20 Calculus of gallbladder without cholecystitis without obstruction; R18.8 Other ascites
CPT/HCPCS: 49083; 76705; 80500; 82042; 87070; 87075; 87205; 89050; P9047

== ENCOUNTER 2020-05-12 09:28 | Outpatient (CLI) | payer MEDICARE, SELFPAY ==
[2020-05-12 09:47] VITALS: BMI 27.2
[2020-05-12 10:09] VITALS: BP 101/71; PULSE 79; RESP 18; TEMP 36.8; O2SAT 100
--- NOTE | 2020-05-12 10:13 | US_ITS ---
WS: [id number] ULTRASOUND-GUIDED PARACENTESIS CLINICAL INFORMATION: Cirrhosis, Alcholic, Liver,Ascites COMPARISON: None. Procedure Informed consent: The risks, benefits, and alternatives of the procedure were discussed with the samantha ent. Verbal and written consent was obtained. Timeout: A timeout was performed to confirm the correct patient, procedure, and site. Preparation: A suitable skin site was identified. The patient was prepped and draped in usual sterile fashion. Lidocaine 1% was used for local anesthesia. Catheter: 4 Bangladeshi One-step Yueh catheter. Side: Left Lower quadrant. Fluid Volume: 10,000 ml Color: Dulce DISPOSITION: Discarded safely. Complications: None. Patient disposition: Discharged from the department in stable condition. US/US paracentesis abd w [id number] IMPRESSION: Uncomplicated ultrasound-guided paracentesis. Removal of 10,000 cc ascites
[2020-05-12 12:35] LABS: Mononuclear %, Pleural Fluid 94 %; Polynuclear Cells, Pleural % 6 %
[2020-05-12 12:36] LABS: Color, Pleural Fluid Yellow (Pale Yellow)
[2020-05-12 12:37] LABS: Appearance, Pleural Fluid CLEAR (CLEAR); PATH Referal YES
[2020-05-12 13:00] VITALS: BP 104/60; PULSE 70; RESP 18; TEMP 36.7; O2SAT 100
== END 2020-05-12 13:02 | disposition home or self-care (01) ==
LOC: CCL 09:35
PROVIDERS: PCP Electrodiagnostic Medicine; Visit Provider Family Medicine
DX: K70.31 Alcoholic cirrhosis of liver with ascites (principal)
CPT/HCPCS: 49083; 80500; 87070; 87075; 87205; 89050; P9047

== ENCOUNTER 2020-05-27 08:49 | Outpatient (CLI) | payer MEDICARE, SELFPAY ==
[2020-05-27 09:19] VITALS: BP 121/77; PULSE 64; RESP 18; TEMP 37; O2SAT 99
[2020-05-27 09:22] VITALS: BP 121/77; PULSE 64; RESP 18; TEMP 37; O2SAT 99; BMI 26.4
--- NOTE | 2020-05-27 09:33 | US_ITS ---
WS: [id number] ULTRASOUND-GUIDED PARACENTESIS CLINICAL INFORMATION: ASCITES COMPARISON: None. Procedure Informed consent: The risks, benefits, and alternatives of the procedure were discussed with the samantha ent. Verbal and written consent was obtained. Timeout: A timeout was performed to confirm the correct patient, procedure, and site. Preparation: A suitable skin site was identified. The patient was prepped and draped in usual sterile fashion. Lidocaine 1% was used for local anesthesia. Catheter: 4 Algerian One-step Yueh catheter. Side: Right Lower quadrant. Fluid Volume: 10,000 ml Color: Yellow DISPOSITION: Discarded safely. Complications: None. Patient disposition: Discharged from the department in stable condition. US/US paracentesis abd w [id number] IMPRESSION: Uncomplicated ultrasound-guided paracentesis. Removal of 10,000 cc
--- NOTE | 2020-05-27 13:36 | SUR.OPER ---
LOT NUMBER AND EXPIRATION DATE ON ALBUMIN BAGS GIVEN #1 [id number], JUN 06 #2 [id number], JUN 06 #3 [id number], JUN 06 #4 [id number], JUN 06 #5 [id number], JUN 06 #6 [id number], JUN 06 #7 [id number], JUN 06 #8 [id number], JUN 06
[2020-05-27 19:51] LABS: Appearance, Peritoneal Fluid Hazy (Clear); Color, Peritoneal Fluid White (Pale Yellow)
[2020-05-27 19:52] LABS: RBC Pertioneal Fluid 0 10^3/uL; WBC Peritoneal Fluid 0 /uL
== END 2020-05-27 08:50 | disposition home or self-care (01) ==
LOC: GILAB 08:51
PROVIDERS: PCP Electrodiagnostic Medicine; Visit Provider Radiology Neuroradiology
DX: R18.8 Other ascites (principal)
CPT/HCPCS: 49083; 80500; 88112; 88305; 89050; 96365; 96366; P9047

== ENCOUNTER 2020-06-10 08:48 | Outpatient (CLI) | payer MEDICARE, SELFPAY ==
--- NOTE | 2020-06-10 09:02 | US_ITS ---
WS: [id number] ULTRASOUND-GUIDED THERAPEUTIC AND DIAGNOSTIC PARACENTESIS Procedure, risks, and complications have been explained to the patient. Consent is obtained. Utilizing aseptic technique and 1% buffered lidocaine, a small dermatome was made through which a 5 F rench Yueh catheter was inserted. Approximately 10,000 ml of clear peritoneal fluid was obtained wit hout difficulty. No complications encountered. Specimen collected for analysis as requested. US/US paracentesis abd w [id number] IMPRESSION: Uncomplicated paracentesis yielding 10,000 ml of peritoneal fluid.
[2020-06-10 09:15] VITALS: BP 119/74; PULSE 62; RESP 20; TEMP 36.3; O2SAT 100; BMI 25.7
[2020-06-10 10:52] LABS: Mononuclear #, Pertinoneal Fl 0.179 10^3/uL
[2020-06-10 11:23] LABS: Appearance, Peritoneal Fluid Hazy (Clear); Color, Peritoneal Fluid Yellow (Pale Yellow)
[2020-06-10 11:24] LABS: Pathology Referral Yes; RBC Pertioneal Fluid 0 10^3/uL; WBC Peritoneal Fluid 189 /uL
[2020-06-10 12:05] VITALS: BP 102/63; PULSE 74; RESP 16; TEMP 36.6; O2SAT 99
== END 2020-06-10 08:49 | disposition home or self-care (01) ==
LOC: RAD 08:53
PROVIDERS: PCP Electrodiagnostic Medicine; Visit Provider Electrodiagnostic Medicine
DX: K70.30 Alcoholic cirrhosis of liver without ascites (principal); R18.8 Other ascites; K72.90 Hepatic failure, unspecified without coma
CPT/HCPCS: 49083; 80500; 87070; 87075; 87205; 89050; 96365; 96366; P9047

== ENCOUNTER 2020-06-24 08:53 | Outpatient (CLI) | payer MEDICARE, SELFPAY ==
[2020-06-24 10:15] VITALS: BP 115/74; PULSE 70; RESP 18; TEMP 36.7; O2SAT 98
--- NOTE | 2020-06-24 10:23 | US_ITS ---
WS: [id number] ULTRASOUND-GUIDED THERAPEUTIC AND DIAGNOSTIC PARACENTESIS Procedure, risks, and complications have been explained to the patient. Consent is obtained. Utilizing aseptic technique and 1% buffered lidocaine, a small dermatome was made through which a 5 F rench Yueh catheter was inserted. Approximately 10,000 ml of clear peritoneal fluid was obtained wit hout difficulty. No complications encountered. Specimen collected for analysis as requested. US/US paracentesis abd w [id number] IMPRESSION: Uncomplicated paracentesis yielding 10,000 ml of peritoneal fluid.
[2020-06-24 11:07] VITALS: BP 105/78; PULSE 64; RESP 16; O2SAT 99
[2020-06-24 11:27] VITALS: BP 100/67; PULSE 67; RESP 16; TEMP 36.3; O2SAT 100
[2020-06-24 11:31] LABS: Body Fluid Polynuclear #Cells 0.007; Body Fluid WBC 168 /uL; Monocytes # Body Fluid 0.161; RBC, Body Fluid 0 10^3/uL
[2020-06-24 11:35] LABS: Apprearance, Body Fluid CLEAR; Color, Body Fluid YELLOW; PATH Referral YES
[2020-06-24 11:50] VITALS: BP 106/66; PULSE 68; RESP 18; TEMP 35.8; O2SAT 98
[2020-06-24 12:37] VITALS: BP 96/60; PULSE 77; RESP 18; O2SAT 99
[2020-06-24 12:47] VITALS: BP 97/59; PULSE 77; RESP 18; TEMP 35.9; O2SAT 99
== END 2020-06-24 08:54 | disposition home or self-care (01) ==
LOC: CCL 08:56 → GILAB 10:14
PROVIDERS: PCP Electrodiagnostic Medicine; Visit Provider Electrodiagnostic Medicine
DX: R18.8 Other ascites (principal)
CPT/HCPCS: 49083; 80500; 87070; 87075; 87205; 87635; 88112; 88305; 89050; 96365; P9047

== ENCOUNTER 2020-06-30 06:48 | Day surgery (SDC) | payer MEDICARE, SELFPAY ==
[2020-06-29 12:43] VITALS: BMI 23.3
--- NOTE | 2020-06-30 06:50 | W.PM.OPSUD ---
Surgery/Procedure H&P Update DATE OF PROCEDURE: June 30, 2020 DATE H&P PERFORMED: 06/21/20 H&P UPDATE INFORMATION: No changes to prior documentation PREOP DIAGNOSIS: History of polyps, awaiting TIPS/liver transplant PLANNED PROCEDURE: Operation Date: 06/30/20 08:15 Proposed Procedures p Colonoscopy 65410 Z86.010 K70.31(Not Applicable) - Maurizio Gonzales MD
[2020-06-30 07:35] VITALS: BP 119/78; PULSE 71; RESP 18; TEMP 36.2; O2SAT 99
[2020-06-30] MEDS: sodium chloride 0.9% 1,000 ML 30 ML IV (07:35)
--- NOTE | 2020-06-30 08:09 | ANES.PREANE2 ---
Pre-Anesthetic Assessment Pre-Anesthetic Assessment: Height/Weight: Height 1.7 m Weight 67.585 kg Temp Pulse Resp BP Pulse Ox 97.2 F L 71 18 119/78 99 06/30/20 07:35 06/30/20 07:35 06/30/20 07:35 06/30/20 07:35 06/30/20 07:35 Preop Diagnosis: History of polyps, awaiting TIPS/liver transplant Proposed Procedure: Operation Date: 06/30/20 08:15 Proposed Procedures p Colonoscopy 17007 Z86.010 K70.31(Not Applicable) - Maurizio Gonzales MD Was Beta Tien taken within 24 hours: Yes Was Clonidine taken within 24 hours: N/A Last intake: Intake Last Liquid Date 06/29/20 Last Liquid Time 23:00 Last Solid Date 06/28/20 Last Solid Time 19:00 Social: Social History: No alcohol and No tobacco Airway: Submandibular: WNL Cervical ROM: WNL MP: 2 Pulmonary: Pulmonary: None reported CV/HEM: CV/HEM: HTN Hepatic: Hepatic: Cirrohsis GI: GI: None reported Metabolic: Metabolic: None reported Musc/skel: Musc/skel: None reported Neuropsych: Neuropsych: None reported Anesthetic Plan: ASA status: 3 Anesthesia: MAC Meds/Allergies Current Medications: Current Medications Generic Name Dose Route Start Last Admin Trade Name Freq PRN Reason Stop Dose Admin Sodium Chloride 1,000 mls @ 30 ml s/hr 06/30/20 07:30 06/30/20 07:35 Sodium Chloride 0.9% IV 07/01/20 07:29 30 mls/hr .Q24H ANDREW Administration PFSH Anesthesia PFSH: Medical History (Updated 12/24/19 @ 00:00 by ) Alcoholic liver disease Hypertension Surgical History H/O circumcision H/O colonoscopy 5 yrs ago H/O esophagogastroduodenoscopy History of back surgery History of surgical removal of ganglion cyst Family History Other CAD (coronary artery disease) Cancer Denies family history of Diabetes Anesthesia complication Bleeding disorder Hypertension Social History Smoking and tobacco status: never smoked Alcohol intake: current Alcohol intake frequency: 0-2 Drinks per Day Household members: spouse Marital status: Current occupational status: retired History of recent travel: No Data Anesthesia Cardiac Studies: No Data to Display
--- NOTE | 2020-06-30 08:39 | ANE.PACU2 ---
Inpatient post-anesthesia follow up: Airway intact: Yes Vital signs: Temperature 97.2 F Pulse Rate 71 Respiratory Rate 18 Blood Pressure 119/78 Pulse Oximetry 99 Oxygen Delivery Me thod Room Air Oxygen Flow Rate Fraction of Inspir ed Oxygen Hydration adequate: Yes Nausea and vomiting: No Pain level: 1 Mental status: Baseline
[2020-06-30 08:40] VITALS: BP 103/56; PULSE 74; TEMP 36.6; O2SAT 97
== END 2020-06-30 09:09 | disposition home or self-care (01) ==
PROVIDERS: PCP Electrodiagnostic Medicine; Visit Provider Surgery
PROC: 0DJD8ZZ Inspection of Lower Intestinal Tract, Via Natural or Artificial Opening Endoscopic (ICD-10-PCS; CPT 45378; principal; 2020-06-30 08:15)
DX: Z12.11 Encounter for screening for malignant neoplasm of colon (principal); Z86.010 Personal history of colon polyps; D12.0 Benign neoplasm of cecum; K70.31 Alcoholic cirrhosis of liver with ascites; I10 Essential (primary) hypertension; Z82.49 Family history of ischemic heart disease and other diseases of the circulatory system
CPT/HCPCS: 12345; 45385; 96360; 96361; J2704; J7030

== ENCOUNTER 2020-07-15 09:40 | Outpatient (CLI) | payer MEDICARE, SELFPAY ==
--- NOTE | 2020-07-15 | US_ITS ---
WS: [id number] ULTRASOUND-GUIDED THERAPEUTIC PARACENTESIS Procedure, risks, and complications have been explained to the patient. Consent is obtained. Utilizing aseptic technique and 1% buffered lidocaine, a small dermatome was made through which a 5 F rench Yueh catheter was inserted. Approximately 10,000 ml of clear peritoneal fluid was obtained wit hout difficulty. No complications encountered. US/US paracentesis abd w [id number] IMPRESSION: Uncomplicated paracentesis yielding 10,000 ml of peritoneal fluid.
[2020-07-15 14:42] VITALS: BP 98/68; PULSE 68; RESP 16; TEMP 36.7; O2SAT 96
--- NOTE | 2020-07-15 14:50 | PC.NURSE ---
10,000ml of fluid removed with paracentesis and the radiologist notified
== END 2020-07-15 09:41 | disposition home or self-care (01) ==
PROVIDERS: PCP Electrodiagnostic Medicine; Visit Provider Electrodiagnostic Medicine
DX: K70.30 Alcoholic cirrhosis of liver without ascites (principal); R18.8 Other ascites; K72.90 Hepatic failure, unspecified without coma
CPT/HCPCS: 49083; 96365; 96366; P9047

== ENCOUNTER → 2020-07-29 08:50 | Day surgery (SDC) | payer MEDICARE, SELFPAY ==
--- NOTE | 2020-07-29 | US_ITS ---
WS: [id number] ULTRASOUND-GUIDED THERAPEUTIC AND DIAGNOSTIC PARACENTESIS Procedure, risks, and complications have been explained to the patient. Consent is obtained. Utilizing aseptic technique and 1% buffered lidocaine, a small dermatome was made through which a 5 F rench Yueh catheter was inserted. Approximately 10,000 ml of clear peritoneal fluid was obtained wit hout difficulty. No complications encountered. US/US paracentesis abd w [id number] IMPRESSION: Uncomplicated paracentesis yielding 10,000 ml of peritoneal fluid.
[2020-07-29 08:58] VITALS: BP 107/75; PULSE 72; RESP 22; TEMP 36.8; O2SAT 99
[2020-07-29 09:00] VITALS: BMI 25.2
[2020-07-29 10:19] LABS: Body Fluid Polynuclear #Cells 0.003; Body Fluid WBC 127 /uL; Monocytes # Body Fluid 0.124; RBC, Body Fluid 0 10^3/uL
[2020-07-29 10:28] LABS: Apprearance, Body Fluid CLEAR; Color, Body Fluid PALE YELLOW; PATH Referral YES
[2020-07-29 10:57] VITALS: BP 94/59; PULSE 78; RESP 16; TEMP 36.9; O2SAT 97
== END ==
PROVIDERS: PCP Electrodiagnostic Medicine; Visit Provider Electrodiagnostic Medicine
DX: R18.8 Other ascites (principal)
CPT/HCPCS: 49083; 80500; 87070; 87075; 87205; 89050; 96365; P9047

== ENCOUNTER → 2020-08-12 13:12 | Day surgery (SDC) | payer MEDICARE, SELFPAY ==
--- NOTE | 2020-08-12 13:29 | US_ITS ---
WS: [id number] ULTRASOUND-GUIDED THERAPEUTIC AND DIAGNOSTIC PARACENTESIS Procedure, risks, and complications have been explained to the patient. Consent is obtained. Utilizing aseptic technique and 1% buffered lidocaine, a small dermatome was made through which a 5 F rench Yueh catheter was inserted. Approximately 10,000 ml of clear peritoneal fluid was obtained with out difficulty. No complications encountered. US/US paracentesis abd w [id number] IMPRESSION: Uncomplicated paracentesis yielding 10,000 ml of peritoneal fluid.
[2020-08-12 14:18] VITALS: BP 118/68; PULSE 84; RESP 18; TEMP 36.4; O2SAT 99; BMI 26.2
[2020-08-12 14:53] LABS: Body Fluid Polynuclear #Cells 0.003; Body Fluid WBC 132 /uL; Monocytes # Body Fluid 0.129; RBC, Body Fluid 0 10^3/uL
[2020-08-12 15:12] LABS: Apprearance, Body Fluid CLEAR; Color, Body Fluid PALE YELLOW; PATH Referral YES
== END ==
PROVIDERS: PCP Electrodiagnostic Medicine; Visit Provider Electrodiagnostic Medicine
DX: R18.8 Other ascites (principal)
CPT/HCPCS: 49083; 80500; 87070; 87075; 87205; 89050; 96365; 96366; P9047

== ENCOUNTER → 2020-08-26 10:02 | Day surgery (SDC) | payer MEDICARE, SELFPAY ==
--- NOTE | 2020-08-26 10:11 | US_ITS ---
WS: [id number] ULTRASOUND-GUIDED THERAPEUTIC AND DIAGNOSTIC PARACENTESIS Procedure, risks, and complications have been explained to the patient. Consent is obtained. Utilizing aseptic technique and 1% buffered lidocaine, a small dermatome was made through which a 5 F rench Yueh catheter was inserted. Approximately 10,000 ml of clear peritoneal fluid was obtained wit hout difficulty. No complications encountered. US/US paracentesis abd w [id number] IMPRESSION: Uncomplicated paracentesis yielding 10,000 ml of peritoneal fluid.
[2020-08-26 10:27] VITALS: BP 119/75; PULSE 86; RESP 18; TEMP 36.5; O2SAT 98; BMI 25.9
[2020-08-26 10:51] LABS: INR 1.23 (0.8-1.2)
[2020-08-26 11:26] VITALS: BP 100/60; RESP 20
[2020-08-26 12:26] LABS: Mononuclear %, Pleural Fluid 95 %; Polynuclear Cells, Pleural % 6 %
[2020-08-26 12:30] LABS: Appearance, Pleural Fluid CLEAR (CLEAR); Color, Pleural Fluid Pale Yellow (Pale Yellow)
[2020-08-26 12:31] LABS: PATH Referal YES
--- NOTE | 2020-08-26 12:34 | PC.NURSE ---
Addendum entered by Vita Silva RN 08/26/20 12:50: Albumin 100 gm IVPB given Lot #[id number] EXP FEB 06 AND [id number] EXP 02/06 Original Note: Albumin 100 gm IVPB started. Lot #[id number] ExpFeb 06
[2020-08-26 13:49] VITALS: BP 105/62; PULSE 88; RESP 16; O2SAT 98
== END ==
PROVIDERS: Radiology Diagnostic Radiology; PCP Electrodiagnostic Medicine; Visit Provider Electrodiagnostic Medicine
DX: R18.8 Other ascites (principal); K74.60 Unspecified cirrhosis of liver; K72.90 Hepatic failure, unspecified without coma
CPT/HCPCS: 49083; 80500; 85610; 87070; 87075; 87205; 89050; 96365; 96366; P9047

== ENCOUNTER → 2020-10-21 10:22 | Day surgery (SDC) | payer MEDICARE, SELFPAY ==
--- NOTE | 2020-10-21 11:11 | US_ITS ---
WS: [id number] Abdominal ultrasound, limited. History: Evaluate for ascites. Comparison: None. All 4 quadrants are imaged by ultrasound to evaluate for ascites. There is only very small amount of ascites within the peritoneal cavity. Minimal amount of ascites surrounding the liver and the LEFT lo wer quadrant. Insufficient for paracentesis. US/US abdomen lmt fluid [id number] IMPRESSION: Insufficient ascites for paracentesis.
[2020-10-21 11:26] VITALS: BP 110/65; PULSE 66; RESP 18; TEMP 36.4; O2SAT 100
--- NOTE | 2020-10-21 11:49 | PC.NURSE ---
PARACENTESIS CANCELLED PER RADIOLOGIST, NOT ENOUGH FLUID.
== END ==
PROVIDERS: PCP Electrodiagnostic Medicine; Visit Provider Electrodiagnostic Medicine
DX: R18.8 Other ascites (principal)
CPT/HCPCS: 49083; 76705

== ENCOUNTER 2021-01-26 06:00 | Outpatient (RCR) | payer MEDICARE, SELFPAY | END 2021-02-14 23:59 | disposition home or self-care (01) | LOC: SPT 06:00 | PROVIDERS: PCP Electrodiagnostic Medicine; Referring Provider Orthopaedic Surgery Sports Medicine; Visit Provider Orthopaedic Surgery Sports Medicine | DX: M25.511 Pain in right shoulder (principal); G89.29 Other chronic pain | CPT/HCPCS: 97110; 97162 ==

== ENCOUNTER 2021-02-15 06:00 | Outpatient (RCR) | payer MEDICARE, SELFPAY | END 2021-03-17 23:59 | disposition home or self-care (01) | LOC: SPT 06:00 | PROVIDERS: PCP Electrodiagnostic Medicine; Referring Provider Orthopaedic Surgery Sports Medicine; Visit Provider Orthopaedic Surgery Sports Medicine | DX: M25.511 Pain in right shoulder (principal); G89.29 Other chronic pain | CPT/HCPCS: 97110 ==

== ENCOUNTER 2022-01-05 07:17 | Outpatient (CLI) | payer MEDICARE, SELFPAY ==
--- NOTE | 2022-01-05 | US_ITS ---
WS: [id number] RIGHT UPPER QUADRANT ULTRASOUND HISTORY: TIPS COMPARISON: Prior CT 11/22/2019 Liver: 12.5 cm in length. Coarsened echotexture throughout the liver. Liver is small with changes of cirrhosis suspected. Portal Vein: Patient has a known TIPS procedure. Only a small portion of the TIPS is evident. The por tion of the TIPS associated with the portal vein is patent. Gallbladder: Well distended gallbladder with numerous stones. The stones are not mobile. CBD: 0.7 cm Pancreas: Normal size and echogenicity. Right kidney: 10.5 cm in length. Normal size and echogenicity. No hydronephrosis or mass. Aorta and IVC: Unremarkable abdominal aorta and IVC. No ascites. US/US abdomen limited [id number] IMPRESSION: 1. No ascites. 2. Cirrhotic liver. 3. As per history patient has undergone a prior TIPS. Only a small portion of the TIPS procedure is identified. Normal flow in the portal vein. 4. Cholelithiasis. Numerous stones in the gallbladder. The stones are not mobi le. May be adhered to the gallbladder wall.
== END 2022-01-05 07:18 | disposition home or self-care (01) ==
LOC: RAD 07:17
PROVIDERS: PCP Electrodiagnostic Medicine; Visit Provider Internal Medicine Gastroenterology
DX: K72.90 Hepatic failure, unspecified without coma (principal); K74.60 Unspecified cirrhosis of liver; K80.20 Calculus of gallbladder without cholecystitis without obstruction
CPT/HCPCS: 76705